=== PATIENT | female | born 1985 | race American Indian/Alaskan Native ===

== ENCOUNTER 2024-09-05 10:06 | Emergency (ER) | payer MEDICAID ==
[2024-09-05] MEDS: cefTRIAXone 1 GM Vial IM ONE (10:56)
[2024-09-05] MEDS ORDERED: Amoxicillin/Clavulanate K 875-125 MG Tab ONE (11:00)
== END 2024-09-05 11:03 | disposition home or self-care (01) ==
LOC: LB.ED 10:06
DX: L03.012 Cellulitis of left finger (principal); I12.9 Hypertensive chronic kidney disease with stage 1 through stage 4 chronic kidney disease, or unspecified chronic kidney disease; N18.9 Chronic kidney disease, unspecified; F17.210 Nicotine dependence, cigarettes, uncomplicated; Z88.8 Allergy status to other drugs, medicaments and biological substances; Z79.82 Long term (current) use of aspirin; Z79.899 Other long term (current) drug therapy; Z90.49 Acquired absence of other specified parts of digestive tract
CPT/HCPCS: 96372; 99283; A9270-GY; J0696